=== PATIENT | female | born 1965 | race Caucasian/White ===

== ENCOUNTER 2020-09-30 06:58 | Day surgery (SDC) | payer BC, SELFPAY ==
[2020-09-26 14:52] VITALS: BMI 29.1
--- NOTE | 2020-09-29 09:15 | HO.ANESPROP2 ---
Documented by User: Lurdes Multani 09/29/20 09:15 HPI - Anesthesia Eval Consult details Narrative: 54yo F for Upper Endoscopy and Colonoscopy [facility] Past Medical History Medical History (Updated 09/26/20 @ 14:57 by Angela Francois) Anemia Back pain GERD (gastroesophageal reflux disease) H/O Ajith thyroiditis Lab test negative for COVID-19 virus Osteoporosis Ovarian cancer Surgical History Surgical History (Updated 09/30/20 @ 08:26 by Sharyn Tay) H/O colonoscopy History of History of esophagogastroduodenoscopy (EGD) Hx of salpingo-oophorectomy, bilateral Social History Social History Are you a primary child care development specialist to a significant other at home: No Do you presently have visiting nurse or other home services: No Smoking Status: Never smoker Use of substances other than those prescribed or required for medical reasons: No Have you been hit, kicked, punched, or otherwise hurt by someone within the past year? If so, by whom?: No Advance Directives Information Provided: No Recently lost weight without trying: No Meds Allergies Allergy/AdvReac Type Severity Reaction Status Date / Time morphine Allergy Severe severe Verified 09/26/20 14:59 nausea/vomiting Home Medications Medication Instructions Recorded Confirmed Last Taken Type magnesium carb,citrate,oxide 300 mg PO DAILY 09/26/20 09/26/20 Unknown History [Magnesium Complex] omeprazole 20 mg PO DAILY 09/26/20 09/26/20 Unknown History s-adenosylmethionine [Venkata-E] 400 mg PO DAILY 09/26/20 09/26/20 Unknown History vitamin B complex 1 tab PO DAILY 09/26/20 09/26/20 Unknown History Exam Exam Date and Time: September 29, 2020 0915 Height,Weight and Vital Signs: Height 5 ft 5 in Weight 79.379 kg Assessment and Plan Assessment Anesthesia Assessment: Chart Reviewed Documented by User: Sharyn Tay 09/30/20 08:27 [facility] Past Medical History Medical History (Updated 09/26/20 @ 14:57 by Angela Francois) Anemia Back pain GERD (gastroesophageal reflux disease) H/O Ajith thyroiditis Lab test negative for COVID-19 virus Osteoporosis Ovarian cancer Family History Family history of problems with anesthesia: No Surgical History Surgical History (Updated 09/30/20 @ 08:26 by Sharyn Tay) H/O colonoscopy History of History of esophagogastroduodenoscopy (EGD) Hx of salpingo-oophorectomy, bilateral History of Problems with Anesthesia: No Social History Social History Are you a primary child care development specialist to a significant other at home: No Do you presently have visiting nurse or other home services: No Smoking Status: Never smoker Use of substances other than those prescribed or required for medical reasons: No Have you been hit, kicked, punched, or otherwise hurt by someone within the past year? If so, by whom?: No Advance Directives Information Provided: No Recently lost weight without trying: No Meds Allergies Allergy/AdvReac Type Severity Reaction Status Date / Time morphine Allergy Severe severe Verified 09/26/20 14:59 nausea/vomiting Home Medications Medication Instructions Recorded Confirmed Last Taken Type magnesium carb,citrate,oxide 300 mg PO DAILY 09/26/20 09/26/20 Unknown History [Magnesium Complex] omeprazole 20 mg PO DAILY 09/26/20 09/26/20 Unknown History s-adenosylmethionine [Venkata-E] 400 mg PO DAILY 09/26/20 09/26/20 Unknown History vitamin B complex 1 tab PO DAILY 09/26/20 09/26/20 Unknown History Exam Height,Weight and Vital Signs: Vital Signs Temp Pulse Resp BP Pulse Ox 09/30/20 07:55 97.7 F 74 20 121/73 100 Airway Mallampati Class: II TM Dist: >3cm Neck ROM: Full Heart: RRR Lungs: CTAB Assessment and Plan Assessment Anesthesia Assessment: Anesthesia Plan Discussed and Chart Reviewed Final Anesthetic Review NPO: Yes ASA Class: II Final Preanesthetic Review: No Changes in Pt Med Stat, Meds/Allgs Chart Reviewed, Consent Obtained/Reviewed and Anes Risks/Benef Reviewed Patient Risk: Low Procedure Risk: Low Assessment/Block/Sedation in SS: Assess/Block/Sedation-SS Anesthetic Plan Anesthetic Plan: MAC: Disposition: Standard PACU
[2020-09-30] MEDS: Lactated Ringers 1,000 ML 100 ML IVCONT (07:42)
[2020-09-30 07:55] VITALS: BP 121/73; PULSE 74; RESP 20; TEMP 36.5; O2SAT 100
--- NOTE | 2020-09-30 08:01 | MHC.SHP ---
Pre-Procedural Eval Section A Changes since office visit: No Cold of Flu in the past 2 weeks, No New Medical Problems, No Changes in Medication and No Patient answered all questions The History & Physical has been completed within 30 days and I have reviewed it.: Yes Section B Chief Complaint: screening,reflux Allergies: Allergies Allergy/AdvReac Type Severity Reaction Status Date / Time morphine Allergy Severe severe Verified 09/26/20 14:59 nausea/vomiting Plan I have reviewed the history and physical and performed a pertinent physical examination on my patient. No changes have occurred unless specified.
--- NOTE | 2020-09-30 08:53 | PM.OP ---
Brief Operative Note Date of Service: 09/30/20 Pre-op diagnosis: gerd, hx polyps Post-op diagnosis: same (gastritis) Procedure: upper endoscopy and colonoscopy Surgeon: Marlo Cronin Anesthesia: MAC Estimated blood loss (mL): 5 Pathology: other (antrum egj gastric polyp bxs) Condition: stable Disposition: PACU
--- NOTE | 2020-09-30 09:41 | OP_ITS ---
SURGEON: Marlo Cronin MD INDICATIONS: 1. Gastroesophageal reflux disease. 2. Personal history of colon polyps. PREOPERATIVE DIAGNOSIS: POSTOPERATIVE DIAGNOSIS: PROCEDURE PERFORMED: 1. Upper endoscopy with biopsy. 2. Colonoscopy to the terminal ileum. ESTIMATED BLOOD LOSS: COMPLICATIONS: ANESTHESIA: ASSISTANTS: SPECIMENS: MEDICATIONS: Monitored anesthesia care. DESCRIPTION OF PROCEDURE: History and physical were performed. The risks and benefits of the procedure were explained to the patient. An informed consent was obtained. The patient was placed in the left lateral decubitus position. A digital rectal exam was performed prior to the colonoscopy. First, the Olympus video gastroscope was introduced into the esophagus, stomach, and duodenum. Examination was performed. The scope was removed. She was repositioned for colonoscopy. The Olympus pediatric video colonoscope was introduced into the rectum and advanced to the cecum without difficulty. The cecum was identified by transillumination, palpation, and identification of ileocecal valve. Examination was performed, and the scope was removed. She tolerated both procedures well and was returned to Recovery in stable condition. FINDINGS: UPPER ENDOSCOPY: Esophagus: The esophagus showed an irregular EG junction. There was no esophagitis. Biopsies were obtained from the EG junction. Stomach: The stomach showed 2 gastric polyps. These were biopsied. These appeared consistent with fundic gland polyps. Antral biopsies were obtained to rule out H pylori. There was gastritis involving the antrum with linear erosions. No ulcer was seen. Duodenum: The bulb and second portion were normal. COLONOSCOPY: The terminal ileum was normal. The visualized colonic mucosa was normal. There was some undigested food and liquid limiting the examination for detection of small polyps. This was washed and suctioned as best possible. No polyps were identified. Retroflexed examination was normal. IMPRESSION: 1. Gastritis. 2. Normal colonoscopy. RECOMMENDATION: 1. Follow up the biopsy results. 2. Colonoscopy should be repeated in 5 years because of prior history of colon polyps. MD TRAY Bartholomew/MEMO / [id number] MTDD
== END 2020-09-30 09:41 | disposition home or self-care (01) ==
PROVIDERS: PCP Internal Medicine; Visit Provider Internal Medicine Gastroenterology
PROC: (CPT 45378; principal; 2020-09-30 08:00)
DX: Z12.11 Encounter for screening for malignant neoplasm of colon (principal); K21.9 Gastro-esophageal reflux disease without esophagitis; K31.7 Polyp of stomach and duodenum; K29.70 Gastritis, unspecified, without bleeding; Z86.010 Personal history of colon polyps; Z79.899 Other long term (current) drug therapy; Z88.5 Allergy status to narcotic agent; Z80.0 Family history of malignant neoplasm of digestive organs
CPT/HCPCS: 45378; 43239; 88305; 88342